=== PATIENT | female | born 1955 | race Caucasian/White ===

== ENCOUNTER 2020-02-12 07:57 | Emergency (ER) | payer MEDICAID, OTHER ==
--- NOTE | 2020-02-12 08:06 | NUR ---
Daniel colmenares in EDM - 02/12/20 at 0806 by YOLIS CALLED IN ED WAITING ROOM NO REPLY.
--- NOTE | 2020-02-12 08:06 | NUR ---
CALLED IN ED WAITING ROOM. NO REPLY.
--- NOTE | 2020-02-12 08:15 | NUR ---
CALLED IN ED WAITING ROOM NO RESPONSE.
== END 2020-02-12 08:18 | disposition left against medical advice (07) ==
LOC: ER 08:03
DX: R10.9 Unspecified abdominal pain (principal); Z53.21 Procedure and treatment not carried out due to patient leaving prior to being seen by health care provider